=== PATIENT | male | born 1990 | race Caucasian/White ===

== ENCOUNTER → 2021-11-27 14:37 | Outpatient (CLI) | payer OTHER, SELFPAY ==
--- NOTE | ~2021-11-27 | XR_ITS ---
EXAMINATION: XR foot RT 2V INDICATION: Right foot pain TECHNIQUE: Two views of the right foot are obtained. COMPARISON: None available FINDINGS: There is no fracture, dislocation, or subluxation. The bones, soft tissues, and joint space s are normal. IMPRESSION: 1. No acute osseous abnormality. Reviewed, dictated and finalized at location [facility]
== END ==
DX: M79.671 Pain in right foot (principal)
CPT/HCPCS: 73620

== ENCOUNTER 2022-11-12 07:56 | Outpatient (CLI) | payer BC, SELFPAY ==
[2022-11-12 21:15] LABS: Hematocrit 47.2 % (42.0-52.0); Hemoglobin 15.4 g/dL (14.0-18.0); Mean Corpuscular HGB Conc 32.6 g/dl (32-36); Mean Corpuscular Hemoglobin 30.1 pg (26-34); Mean Corpuscular Volume 92.4 fl (80-100); Mean Platelet Volume 9.7 fl (7.4-10.4); Platelet Count Result 238 k/mm3 (150-375); Red Blood Count 5.11 M/mm3 (4.6-6.20); Red Cell Distribution Width 12.2 % (11.5-14.5); White Blood Count 5.7 K/mm3 (4.5-10.0)
[2022-11-12 21:32] LABS: Alanine Aminotransferase 28 U/L (6-50); Albumin Level 4.5 g/dL (3.5-5.1); Alkaline Phosphatase 72 U/L (38-126); Anion Gap 5 mmol/L (8-16); Aspartate Amino Transferase 37 U/L (17-59); Bilirubin,Total 0.5 mg/dL (0.2-1.3); Blood Urea Nitrogen 11 mg/dL (9-20); Carbon Dioxide 26 mmol/L (22-30); Chloride 106 mmol/L (98-107); Cholesterol 167 mg/dL (0-200); Estimated Glomerular Filt Rate > 60; Glucose 91 mg/dL (65-110); HDL Direct 50 mg/dL; Potassium 4.1 mmol/L (3.4-5.0); Sodium 137 mmol/L (137-145); Triglycerides 67 mg/dL (<150)
[2022-11-12 21:43] LABS: LDL Cholesterol Direct 86 mg/dL
== END 2022-11-12 07:57 | disposition home or self-care (01) ==
LOC: ANHBWCLAB 07:58
PROVIDERS: PCP Family Medicine; Visit Provider Family Medicine
DX: Z00.00 Encounter for general adult medical examination without abnormal findings (principal); I10 Essential (primary) hypertension; F90.9 Attention-deficit hyperactivity disorder, unspecified type; E66.9 Obesity, unspecified; R45.4 Irritability and anger
CPT/HCPCS: 36415; 80053; 80061; 84443; 85027

== ENCOUNTER 2023-07-15 09:24 | Outpatient (CLI) | payer BC, SELFPAY ==
[2023-07-18 14:58] LABS: GGT 19 U/L (3-90)
== END 2023-07-15 09:25 | disposition home or self-care (01) ==
LOC: ANHBWCLAB 09:26
PROVIDERS: PCP Family Medicine; Visit Provider Family Medicine
DX: F10.11 Alcohol abuse, in remission (principal)
CPT/HCPCS: 36415; 82977

== ENCOUNTER 2023-08-18 09:37 | Outpatient (CLI) | payer BC, SELFPAY ==
[2023-08-21 15:15] LABS: GGT 21 U/L (3-90)
== END 2023-08-18 09:38 | disposition home or self-care (01) ==
PROVIDERS: PCP Family Medicine; Visit Provider Family Medicine
DX: R10.11 Right upper quadrant pain (principal)
CPT/HCPCS: 36415; 82977

== ENCOUNTER 2023-09-30 14:18 | Outpatient (CLI) | payer BC, SELFPAY ==
[2023-10-05 16:11] LABS: GGT 18 U/L (3-90)
== END 2023-09-30 14:19 | disposition home or self-care (01) ==
LOC: ANHBWCLAB 14:20
PROVIDERS: PCP Family Medicine; Visit Provider Family Medicine
DX: F98.8 Other specified behavioral and emotional disorders with onset usually occurring in childhood and adolescence (principal); F10.11 Alcohol abuse, in remission
CPT/HCPCS: 36415; 82977